=== PATIENT | male | born 1960 | race Hispanic/Latino ===

== ENCOUNTER 2025-05-11 11:50 | Emergency (ER) | payer BC, SELFPAY ==
[2025-05-11 11:51] VITALS: BP 156/108
--- NOTE | 2025-05-11 13:30 | ED.GENMED ---
History of Present Illness
General
Chief Complaint: Crisis Evaluation
Source: patient
Exam Limitations: none
Time Seen by Provider: 05/11/25 12:54
Nursing documentation reviewed up to this point in time: agreed with
History of Present Illness
History of Present Illness:
Patient presents to ED for medical evaluation, as he is seeking assistance for alcohol dependence as well as increased impulsive behavior and anger. Patient denies suicidal or homicidal ideation. Denies headache. Denies use of any other illicit
medications. Denies recent illness. Denies recent change in medications or diet. Denies loss of sensation or weakness. Denies nausea or vomiting. Denies diarrhea. Denies difficulty with sleeping. In the past, patient has received outpatient
therapy for alcohol dependence.
Review of Systems
Review of Systems
Allergies reviewed?: Yes
All Other Systems: ROS reviewed and negative except as documented in HPI and ROS
Constitutional: Reports no symptoms
EENT: Reports no symptoms
Respiratory: Reports no symptoms
Cardiac: Reports no symptoms
ABD/GI: Reports no symptoms
Musculoskeletal: Reports no symptoms
Skin: Reports no symptoms
Neurological: Reports no symptoms
Psychiatric: Reports other (Behavioral disturbance, alcohol dependence)
Phy Exam
Physical Exam
Physical Exam:
Physical Exam
General: no apparent distress, not acutely ill. afebrile
Head: nc/at. eomi
Neck: supple. no meningeal signs.
Heart: s1/s2 regular rate and rhythm
Lungs: no acute respiratory distress. clear bilaterally
Abdomen: normal bowel sounds. not tender.
Neuro: alert and oriented x 3. no focal neurological deficits. normal speech
Skin: no rash
Psychiatric: well kept. interactive and cooperative
Extremities: no edema. no calf tenderness.
Course
Orders/Labs/Results
Orders:
Orders
05/11/25 12:54
Crisis Consult Urgent
Reason for Consult: anger and alcohol dependence
05/11/25 13:09
Electrocardiogram (*1) Urgent
Reason for Study: QTc Monitoring
CT Head W/o Iv Contrast Urgent
Comment:
Reason For Exam: mental status change
EKG- Treatment ONCE
05/11/25 13:52
Acetaminophen Urgent
Alcohol Urgent
Complete Blood Count/With Diff Urgent
Comprehensive Metabolic Panel Urgent
Free T3 Urgent
Free T4 Urgent
Magnesium Urgent
Phosphorus Urgent
Salicylate Urgent
TSH Urgent
Uric Acid Urgent
Vitamin B12 Urgent
Vitamin D, 25-OH Urgent
05/11/25 15:02
Urinalysis Reflex To Culture Urgent
Date Specimen was Collected: 05/11/25
Time Specimen was Collected: 14:58
Urine Drug Abuse Screen Urgent
Date Specimen was Collected: 05/11/25
Time Specimen was Collected: 14:58
Urine Microscopic Reflex Cult Urgent
Abnormal Lab Results
05/11/25 05/11/25
13:52 15:02
Absolute Neuts (auto) 6.8 H 10^3/uL
(1.4-6.5)
Absolute Monos (auto) 0.8 H 10^3/uL
(0.1-0.6)
Lymphocytes % 18.2 L %
(20.5-51.1)
Glucose 211 H mg/dl
(70-99)
Uric Acid 2.8 L mg/dl
(3.5-8.5)
Urine Ketones 1+ A
(Negative)
Urine Urobilinogen 2+ A
(Neg - 1+)
Urine Bacteria (Reflex) Few A
(Negative)
Urine Glucose 3+ A
(Negative)
Urine Albumin (Reflex) 3+ A
(Neg - Trace)
Salicylates < 1.0 L mg/dl
(2.0-20.0)
Acetaminophen < 10 L ug/ml
(10-30)
05/11/25 13:52
05/11/25 13:52
Vital Signs
Initial and Last Documented VS:
Initial Vital Signs
Temp Pulse Resp BP Pulse Ox
98.4 F 112 20 156/108 96
05/11/25 11:51 05/11/25 11:51 05/11/25 11:51 05/11/25 11:51 05/11/25 11:51
Last Documented Vital Signs
Temp Pulse Resp BP Pulse Ox
98.4 F 84 16 160/61 97
05/11/25 11:51 05/11/25 15:54 05/11/25 16:08 05/11/25 16:48 05/11/25 14:02
MDM/Problems Addressed
MDM/Problems Addressed:
CT head report reviewed and discussed with patient and spouse. Patient otherwise remains afebrile, hemodynamically stable, and nontoxic-appearing. Patient is medically cleared for an evaluation at inpatient detox/rehab facility.
Pt evaluated by [facility] tool maintenance worker. An arrangement made for the patient to be admitted to inpatient detox/rehab center tomorrow. Patient otherwise is well-appearing, without any acute distress, at time of discharge, to the care of his .
*EKG
Interpreted by ED Provider?: Yes
EKG Intrepretation Date: 05/11/25
Heart Rate: 86
Rate: normal
Rhythm: sinus
Hackett: normal axis
QRS Pattern: right bundle branch block
*Critical Care Note
Total Time (30-74mins, 75-104mins- exclusive of procedures): Not Applicable
ED Attending Note
-
Portions of this chart may have been created with voice recognition software.� Occasional wrong word or��sound alike� substitutions may have occurred due to the inherent limitations of voice recognition software.
Discharge Plan
Departure
Patient Disposition: Home (Routine Discharge)
Date of Disposition: 05/11/25
Time of Disposition: 16:46
Patient with high blood pressure during this ER visit?: Yes
Discharge Problem:
Alcohol dependence
Instructions: Alcohol Use Disorder (DC)
Referrals:
Tam Sanders MD [Family Provider, Internal Medicine]
Activity Restrictions/Additional Instructions:
As discussed, please follow-up with referred rehab facility for further evaluation and treatment.
Interventions
Interventions:
*Risk Screen - Suicide Last Done: 05/11/25 11:51
*General Assessment Last Done: 05/11/25 11:51
*Neglect/Abuse Screening Last Done: 05/11/25 11:51
*ED- Fall Risk Assessment Last Done: 05/11/25 12:56
*ED COVID-19 Vaccine History Last Done: 05/11/25 12:56
*Nursing Disposition Last Done: 05/11/25 16:51
ED- Neurological Assessment Last Done: 05/11/25 12:59
ED-Psychological Assessment Last Done: 05/11/25 12:59
Discharge Date and Time
Discharge Date/Time: 05/11/25 16:52
Print Language: ESTONIAN
[2025-05-11 14:00] VITALS: BP 218/81
[2025-05-11 14:02] LABS: % Basophils 0.3 % (0-2); % Eosinophils 0.8 % (0-6); % Immature Granulocytes 0.3 % (0-0.5); % Lymphocytes 18.2 % (20.5-51.1); % Monocytes 8.7 % (1.7-9.3); % Neutrophils 71.7 % (42.2-75.2); Absolute Eosinophils 0.1 10^3/uL (0-0.7); Absolute Lymphocytes 1.7 10^3/uL (1.2-3.4); Absolute Monocytes 0.8 10^3/uL (0.1-0.6); Absolute Neutrophils 6.8 10^3/uL (1.4-6.5); Hemoglobin 15.1 g/dL (13.0-18.0); Mean Corp Hgb Conc. 35.1 g/dL (33.0-37.0); Mean Corpuscular Hgb 30.6 pg (27.0-31.0); Mean Corpuscular Volume 87.2 fL (80.0-94.0); Mean Platelet Volume 9.7 fL (7.4-10.4); Nucleated Red Blood Cells % 0 % (-); Platelet Count 251 10^3/uL (130-400); Red Blood Cell Count 4.93 10^6/uL (4.70-6.10); White Blood Cell Count 9.5 10^3/uL (4.8-10.8)
[2025-05-11 14:32] LABS: ALT (SGPT) 39 U/L (0-50); AST (SGOT) 50 U/L (17-59); Acetaminophen < 10 ug/ml (10-30); Albumin 4.6 g/dl (3.5-5.0); Alkaline Phosphatase 99 U/L (38-126); Blood Urea Nitrogen 15 mg/dl (9-20); Calcium 9.6 mg/dl (8.4-10.2); Carbon Dioxide 27 mmol/L (22-30); Chloride 101 mmol/L (98-107); Glucose 211 mg/dl (70-99); Magnesium 2.1 mg/dl (1.6-2.3); Phosphorus 3.7 mg/dl (2.5-4.5); Potassium 4.9 mmol/L (3.5-5.1); Salicylate < 1.0 mg/dl (2.0-20.0); Sodium 137 mmol/L (135-145); Total Bilirubin 0.8 mg/dl (0.2-1.3); Total Protein 8.1 g/dl (6.3-8.2); Uric Acid 2.8 mg/dl (3.5-8.5); eGFR > 60.00
[2025-05-11 14:35] LABS: Alcohol None Detected
[2025-05-11 14:50] LABS: Free T3 4.13 pg/ml (2.77-5.27); Free T4 1.18 ng/dl (0.78-2.19); Vitamin D, 25-OH*** 40.8 ng/mL (30-80)
[2025-05-11 15:03] LABS: TSH 1.22 uIU/ml (0.47-4.68)
[2025-05-11 15:16] LABS: Urine Albumin 3+ (Neg - Trace); Urine Bilirubin Negative (Negative); Urine Character Slightly Cloudy (Clear); Urine Color Yellow; Urine Glucose 3+ (Negative); Urine Ketone 1+ (Negative); Urine Leukocyte Negative (Negative); Urine Nitrite Negative (Negative); Urine Occult Blood Negative (Negative); Urine Specific Gravity 1.015 (<1.030); Urine Urobilinogen 2+ (Neg - 1+)
[2025-05-11 15:22] LABS: Urine Bacteria Few (Negative); Urine Red Blood Cell 0-2 /HPF (0-2); Urine White Cell 0-2 /HPF (0-5)
[2025-05-11 15:25] LABS: Vitamin B12 633 pg/ml (239-931)
[2025-05-11 15:36] LABS: Amphetamines Negative (Negative); Barbiturates Negative (Negative); Benzodiazepines Negative (Negative); Buprenorphine Negative (Negative); Cocaine Negative (Negative); Marijuana Negative (Negative); Methadone Negative (Negative); Methamphetamines Negative (Negative); Opiates Negative (Negative); Phencyclidine Negative (Negative); Tricyclic Antidepressants Negative (Negative)
[2025-05-11 16:48] VITALS: BP 160/61
== END 2025-05-11 16:52 | disposition home or self-care (01) ==
LOC: EMR 11:50
PROVIDERS: EMERGENCY PHYSICIAN Emergency Medicine; FAMILY PHYSICIAN Internal Medicine
DX: F10.20 Alcohol dependence, uncomplicated (principal); R45.87 Impulsiveness; I45.10 Unspecified right bundle-branch block; Z86.73 Personal history of transient ischemic attack (TIA), and cerebral infarction without residual deficits
CPT/HCPCS: 99284; 70450; 80053; 80143; 80179; 80306; 81003; 81015; 82077; 82306; 82607; 83735; 84100; 84439; 84443; 84481; 84550; 85025; 93005